=== PATIENT | female | born 1985 | race Caucasian/White ===

== ENCOUNTER 2018-07-13 05:35 | Inpatient (IN) | payer BC ==
[~2018-07-13] VITALS: Ht 172.7 cm; Wt 72.7 kg
[2018-07-13] VITALS (19 sets, daily range): BP systolic 99–134; BP diastolic 56–77; PULSE 60–85; TEMP 98.2–98.7
[2018-07-13 06:05] LABS: BASO % 0.3 % (0.0-2.0); EOS # 0.2 (0.0-0.7); EOS % 2.2 % (0-4.0); GRAN # 5.8 (1.4-6.5); GRAN % 67.2 % (42.2-75.2); HEMATOCRIT 35.8 % (37.0-47.0); HEMOGLOBIN 12.1 g/dl (12.5-16.0); LYMPH # 1.7 (1.2-3.4); LYMPH % 19.2 % (20.0-51.0); MEAN CELL VOLUME 91 fl (80.0-100.0); MEAN CORPUSCULAR HEMOGLOBIN 31 pg (27.0-31.0); MEAN CORPUSCULAR HGB CONC 34 g/dl (33.0-37.0); MEAN PLATELET VOLUME 11.6 fl (7.4-10.4); MONO # 0.9 (0.1-0.6); MONO % 10.2 % (1.7-9.3); PLATELET COUNT 233 K/mm3 (130-400); RED BLOOD COUNT 3.95 M/mm3 (4.10-5.30)
[2018-07-13] MEDS ORDERED: TUMS500 MG (06:24)
[2018-07-13] MEDS ORDERED: MOTRIN 800800 MG/TAB PO (07:16)
[2018-07-13] MEDS ORDERED: PERCOCET 325 MG1 TA2 PO (07:16)
[2018-07-14 06:49] LABS: HEMATOCRIT 29.3 % (37.0-47.0); HEMOGLOBIN 9.8 g/dl (12.5-16.0)
[2018-07-14 08:15] VITALS: BP 108/69; PULSE 73; TEMP 97.5
[2018-07-14 16:30] VITALS: BP 105/62; PULSE 71; TEMP 97.8
[2018-07-14 20:00] VITALS: BP 103/67; PULSE 71; TEMP 97.7
[2018-07-15 08:38] VITALS: BP 101/69; PULSE 72; TEMP 97.7
== END 2018-07-15 14:05 | disposition home or self-care (01) | DRG 787 ==
LOC: OB 05:35 → LDR 20:20 → OB 07-15 14:05
PROVIDERS: Obstetrics & Gynecology
PROC: 10D00Z1 Extraction of Products of Conception, Low, Open Approach (ICD-10-PCS; principal; 2018-07-13)
DX: O34.211 Maternal care for low transverse scar from previous cesarean delivery (principal); O44.43 Low lying placenta NOS or without hemorrhage, third trimester; Z3A.39 39 weeks gestation of pregnancy; Z37.0 Single live birth; O99.284 Endocrine, nutritional and metabolic diseases complicating childbirth; E05.00 Thyrotoxicosis with diffuse goiter without thyrotoxic crisis or storm; O69.81X0 Labor and delivery complicated by cord around neck, without compression, not applicable or unspecified
CPT/HCPCS: J0690; J1885; J2175; J2370; J2405; J2590; J3010; J7120

== ENCOUNTER 2021-04-09 05:34 | Inpatient (IN) | payer BC ==
[2021-04-09] VITALS (16 sets, daily range): BP systolic 99–115; BP diastolic 52–77; PULSE 61–90; TEMP 97.3–98.1
[~2021-04-09] VITALS: Ht 172.7 cm; Wt 76.4 kg
[~2021-04-09 05:34] MED LIST: MOTRIN 800800 MG/TAB PO; PERCOCET 325 MG1 TA2 PO; TUMS500 MG
--- NOTE | 2021-04-09 05:40 | NUR ---
0540 TO LR1 FOR REPEAT C/SECT AT 0730. COVID POSITIVE. COVID PRECAUTIONS IN PLACE. ORIENTED TO ROOM. EFM ON WITH FHT'S 130'S. PERMITS SIGNED AND IV STARTED AND LAB OBTAINED.
[2021-04-09 06:14] LABS: MEAN CELL VOLUME 93 fl (80.0-100.0); MEAN CORPUSCULAR HEMOGLOBIN 31 pg (27.0-31.0); MEAN CORPUSCULAR HGB CONC 33 g/dl (33.0-37.0); MEAN PLATELET VOLUME 11.8 fl (7.4-10.4); PLATELET COUNT 220 K/mm3 (130-400); RED BLOOD COUNT 3.57 M/mm3 (4.10-5.30); REDCELL DISTRIBUTION WIDTH-CV 12.7 % (11.5-14.5)
[2021-04-09 06:31] LABS: HEMATOCRIT 33.3 % (37.0-47.0)
[2021-04-09] MEDS ORDERED: PRENATAL TABLET PO (06:51)
[2021-04-09 08:46] LABS: EOSINOPHIL 2 % (0-4); LYMPHOCYTE 13 % (20.0-51.0); METAMYELOCYTE 2 % (0-0); NEUTROPHILS 75 % (42.0-75.2); PLATELET ESTIMATE NORMAL (NORMAL)
[2021-04-09 08:47] LABS: ANISOCYTOSIS 1+
[2021-04-09 08:48] LABS: MICROCYTOSIS 1+
[2021-04-10 00:30] VITALS: BP 98/60; PULSE 65
[2021-04-10 04:40] VITALS: BP 118/67; PULSE 67; TEMP 98.1
[2021-04-10 07:45] VITALS: BP 102/54; PULSE 59; TEMP 97.9
[2021-04-10] MEDS ORDERED: PERCOCET 325 MG1 TA2 PO (08:16)
[2021-04-10] MEDS ORDERED: MOTRIN 800800 MG/TAB PO (08:16)
[2021-04-10 17:15] VITALS: BP 104/66; PULSE 71; TEMP 98.3
[2021-04-10 21:00] VITALS: BP 101/58; PULSE 74; TEMP 97.9
[2021-04-11 07:57] VITALS: BP 111/69; PULSE 60; TEMP 97.7
== END 2021-04-11 14:00 | disposition home or self-care (01) | DRG 786 ==
LOC: LDR 05:34
PROVIDERS: ADMIT Obstetrics & Gynecology
PROC: 10D00Z1 Extraction of Products of Conception, Low, Open Approach (ICD-10-PCS; principal; 2021-04-09)
DX: O34.211 Maternal care for low transverse scar from previous cesarean delivery (principal); U07.1 COVID-19; O98.52 Other viral diseases complicating childbirth; O99.52 Diseases of the respiratory system complicating childbirth; J98.8 Other specified respiratory disorders; O99.284 Endocrine, nutritional and metabolic diseases complicating childbirth; E05.00 Thyrotoxicosis with diffuse goiter without thyrotoxic crisis or storm; Z3A.39 39 weeks gestation of pregnancy; Z37.0 Single live birth
CPT/HCPCS: J7120

== ENCOUNTER 2023-12-15 09:42 | Inpatient (IN) | payer BC ==
[2023-12-15] VITALS (16 sets, daily range): BP systolic 93–125; BP diastolic 58–78; PULSE 48–72; TEMP 98–98.5
[~2023-12-15] VITALS: Ht 172.8 cm; Wt 79.1 kg
[~2023-12-15 09:42] MED LIST changes: +PRENATAL TABLET PO
[2023-12-15] MEDS ORDERED: Ondansetron 4 MG/2 ML VIAL IV SCH (10:00)
[2023-12-15] MEDS ORDERED: LR 1,000 ML IV SCH ×2 (10:00)
--- NOTE | 2023-12-15 10:05 | NUR ---
PT AMBULATORY TO ROOM 220 WITH SPOUSE. PT HERE FOR SCHEDULED REPEAT SECTION. PT CHANGED INTO CLEAN GOWN. FHR MONITOR/TOCO APPLIED. PT DENIES ANY VAGINAL BLEEDING, LEAKING OF FLUID, OR REGULAR CONTRACTIONS. PT REPORTS GOOD MOVEMENT. MATERNAL VITAL SIGNS WNL.
[2023-12-15] MEDS ORDERED: PRIL40 PO (10:08)
[2023-12-15] MEDS ORDERED: SYNTHROID0.05 MG/TA PO (10:09)
[2023-12-15 10:49] LABS: BASO % 0.3 % (0.0-2.0); EOS # 0.1 K/mm3 (0.0-0.7); EOS % 0.9 % (0.0-4.0); GRAN # 6.4 K/mm3 (1.4-6.5); GRAN % 73.6 % (42.2-75.2); HEMOGLOBIN 10.7 g/dl (12.5-16.0); LYMPH # 1.2 K/mm3 (1.2-3.4); LYMPH % 13.8 % (20.0-51.0); MEAN CELL VOLUME 89 fl (80.0-100.0); MEAN CORPUSCULAR HEMOGLOBIN 29 pg (27-31); MEAN CORPUSCULAR HGB CONC 33 g/dl (33.0-37.0); MEAN PLATELET VOLUME 11.8 fl (7.4-10.4); MONO # 0.9 K/mm3 (0.1-0.6); MONO % 10.2 % (1.7-9.3); PLATELET COUNT 225 K/mm3 (130-400); RED BLOOD COUNT 3.66 M/mm3 (4.10-5.30); REDCELL DISTRIBUTION WIDTH-CV 12.9 % (11.5-14.5)
[2023-12-15 10:50] LABS: HEMATOCRIT 32.4 % (37.0-47.0)
[2023-12-15] MEDS ORDERED: Ketorolac 30 MG/ML VIAL ONE (11:23)
[2023-12-15] MEDS ORDERED: Ondansetron 4 MG/2 ML VIAL ONE (11:23)
[2023-12-15] MEDS ORDERED: dexAMETHasone 10 MG/ML VIAL ONE (11:23)
[2023-12-15] MEDS ORDERED: NS 10 ML IV ONE (11:23)
[2023-12-15] MEDS ORDERED: Oxytocin 10 UNITS/ML VIAL ONE (11:23)
[2023-12-15] MEDS ORDERED: Measles/Mumps/Rubella Virus Vaccine Live w Diluent 0.5 ML VIAL SQ SCH (13:00)
[2023-12-15] MEDS ORDERED: Ondansetron 4 MG/2 ML VIAL IV PRN (13:00)
[2023-12-15] MEDS ORDERED: Magnes Hydrox (MOM) 80 MG/ML 30 ML CUP PO PRN (13:00)
[2023-12-15] MEDS ORDERED: oxyCODONE 5 MG TAB PO PRN ×2 (13:00→17:45)
[2023-12-15] MEDS ORDERED: Acetaminophen 500 MG TAB PO PRN (13:00)
[2023-12-15] MEDS ORDERED: LR 1,000 ML IV PRN (13:00)
[2023-12-15] MEDS ORDERED: Naloxone 0.4 MG/ML VIAL IV PRN (13:00)
[2023-12-15] MEDS ORDERED: Loratadine 10 MG TAB PO PRN (13:00)
[2023-12-15] MEDS ORDERED: Sennosides/Docusate 8.6-50 MG TAB PO SCH (17:00)
[2023-12-15] MEDS ORDERED: Morphine 4 MG/ML VIAL IV PRN (18:00)
[2023-12-15] MEDS ORDERED: Ibuprofen 800 MG TAB PO SCH (18:54)
[2023-12-15] MEDS ORDERED: traZODone 50 MG TAB PO PRN (21:00)
--- NOTE | 2023-12-15 21:15 | NUR ---
PATIENT ABLE TO LIFT BILATERAL LOWER EXTREMITIES. PATIENT AMBULATORY TO RESTROOM FOLLOWING DELIVERY WITHOUT DIFFICULTY. GANN CATHETER REMOVED AND PERICARE PROVIDED. CLEAN [facility]OSPITAL GOWN, UNDERWEAR AND PAD ON. PATIENT AMBULATORY BACK TO BED. PLAN OF CARE EXPLAINED TO PATIENT AND SPOUSE. QUESTIONS INVITED AND ANSWERED.
[2023-12-16 04:30] VITALS: BP 123/79; PULSE 88
[2023-12-16 07:00] VITALS: BP 108/66; PULSE 52; TEMP 97.5
--- NOTE | 2023-12-16 09:55 | NUR ---
Initial visit attempt; Patient and family resting. Network Operations Lead left card offering congratulations and God's blessings for the of their daughter and information regarding the availability of [facility] Care at our hospital.
[2023-12-16 16:07] VITALS: BP 101/71; BP 105/64; PULSE 66; PULSE 73; TEMP 97.9; TEMP 98
[2023-12-16 19:15] VITALS: BP 113/87; PULSE 73; TEMP 98.1
[2023-12-17 08:30] VITALS: BP 103/70; PULSE 62; TEMP 97.6
--- NOTE | 2023-12-17 11:40 | NUR ---
DISCHARGE TEACHING COMPLETED. EDUCATED ON FOLLOW UP APPOINTMENTS AND PRESCRIPTIONS. QUESTIONS INVITED AND ANSWERED.
== END 2023-12-17 14:00 | disposition home or self-care (01) | DRG 788 ==
LOC: OB 09:42
PROVIDERS: ADMIT Obstetrics & Gynecology
PROC: 10D00Z1 Extraction of Products of Conception, Low, Open Approach (ICD-10-PCS; principal; 2023-12-15)
DX: O34.211 Maternal care for low transverse scar from previous cesarean delivery (principal); Z3A.39 39 weeks gestation of pregnancy; Z37.0 Single live birth; O99.284 Endocrine, nutritional and metabolic diseases complicating childbirth; E03.9 Hypothyroidism, unspecified; Z79.890 Hormone replacement therapy; Z23 Encounter for immunization
CPT/HCPCS: J0665; J0690; J1100; J1885; J2405; J2590; J7120